=== PATIENT | female | born 1950 | race Two or more races ===

== ENCOUNTER 2017-08-06 21:38 | Inpatient (IN) | payer BC, MEDICARE ==
[~2017-08-06] VITALS: Ht 157.5 cm; Wt 53.0 kg
[2017-08-06] MEDS ORDERED: SODIUM CHLORIDE FLUSH 10ML SYR IVF ONE (22:30)
[2017-08-06 22:34] LABS: BASOPHILS # (AUTO) 0.01 x10^3/uL (0-0.1); BASOPHILS % (AUTO) 0 % (0-1); EOSINOPHILS % (AUTO) 1 % (1-7); LYMPHOCYTES # (AUTO) 1.05 x10^3/uL (1-3.4); LYMPHOCYTES % (AUTO) 15 % (22-44); MD NO; MEAN CORPUSCULAR HEMOGLOBIN 31.7 pg (27.0-34.8); MEAN CORPUSCULAR HGB CONC 34.1 g/dL (32.4-35.8); MEAN CORPUSCULAR VOLUME 92.8 fL (80-100); MEAN PLATELET VOLUME 7.8 fL (7.4-10.4); MONOCYTES # (AUTO) 0.48 x10^3/uL (0.2-0.8); MONOCYTES % (AUTO) 7 % (2-9); NEUTROPHILS # (AUTO) 5.52 x10^3/uL (1.8-6.8); NEUTROPHILS % (AUTO) 77 % (42-75); PLATELET COUNT 223 x10^3/uL (130-400); RED BLOOD COUNT 4.31 x10^6/uL (3.82-5.3); RED CELL DISTRIBUTION WIDTH 13.8 % (9.6-15.2)
[2017-08-06] MEDS ORDERED: ATORVASTATIN (22:44)
[2017-08-06] MEDS ORDERED: CITALOPRAM (22:44)
[2017-08-06 22:45] LABS: ALANINE AMINOTRANSFERASE 23 U/L (12-78); ALBUMIN 3.2 g/dL (3.4-5.0); ANION GAP 6 mmol/L (5-15); CALCIUM 7.9 mg/dL (8.5-10.1); CHLORIDE 110 mmol/L (98-107); CREATININE 0.78 mg/dL (0.55-1.02)
[2017-08-06 22:49] LABS: ALKALINE PHOSPHATASE 80 U/L (45-117); BILIRUBIN,TOTAL 0.4 mg/dL (0.2-1.0); TOTAL PROTEIN 6.4 g/dL (6.4-8.2); TROPONIN I < 0.015 ng/mL (0.000-0.045)
[2017-08-06] MEDS ORDERED: ACETAMINOPHEN 325 MG TABLET PO PRN (23:30)
[2017-08-06] MEDS ORDERED: FAMOTIDINE 20 MG/2 ML IVPush SCH (23:30)
[2017-08-06] MEDS ORDERED: METOCLOPRAMIDE 5 MG/ML, 2ML IVPush PRN (23:30)
[2017-08-06 23:57] VITALS: BP 111/66
[2017-08-07] MEDS: SODIUM CHLORIDE 0.9% 1,000 ML IV SCH ×2 (01:11→07:49)
[2017-08-07 01:33] VITALS: BP 98/58
[2017-08-07] MEDS: RANITIDINE 50 MG in SODIUM CHLORIDE 0.9% 100 ML IV SCH ×2 (02:05→12:26)
[2017-08-07 07:14] VITALS: BP 103/62
[2017-08-07] MEDS ORDERED: ENOXAPARIN 40 MG/0.4 ML SQ SCH (12:00)
[2017-08-07] MEDS ORDERED: NICOTINE 21 MG/24 HR PATCH.TD24 TD SCH (12:00)
[2017-08-07 13:08] VITALS: BP 112/71
[2017-08-07] MEDS ORDERED: [UNRECOGNIZED DRUG - REMARK] MC SCH (15:30)
[2017-08-07] MEDS ORDERED: IBUPROFEN 200 MG TABLET PO PRN ×2 (15:30→16:43)
[2017-08-07 19:37] VITALS: BP 96/62
[2017-08-07] MEDS ORDERED: FAMOTIDINE 20 MG TABLET PO SCH (21:00)
[2017-08-07] MEDS: DIPHENHYDRAMINE 25 MG CAPSULE PO PRN ×2 (21:06→22:26)
[2017-08-08 01:05] VITALS: BP 98/57
[2017-08-08 08:00] VITALS: BP 134/74
[2017-08-08] MEDS ORDERED: POTASSIUM CHLORIDE 20 MEQ TAB.ER.PRT PO ONE (13:00)
== END 2017-08-08 14:15 | disposition home or self-care (01) | DRG 73 ==
LOC: ED 22:43 → EDIP 23:10 → 4WST 08-07 00:12 → DCLOUNGE 08-08 14:11
PROVIDERS: ADMIT Internal Medicine Pulmonary Disease; ATTEND Internal Medicine Pulmonary Disease
DX: G90.9 Disorder of the autonomic nervous system, unspecified (principal); J96.00 Acute respiratory failure, unspecified whether with hypoxia or hypercapnia; I95.9 Hypotension, unspecified; E44.1 Mild protein-calorie malnutrition; E83.51 Hypocalcemia; E86.1 Hypovolemia; E87.6 Hypokalemia; F17.210 Nicotine dependence, cigarettes, uncomplicated; J43.9 Emphysema, unspecified; F32.9 Major depressive disorder, single episode, unspecified; G44.209 Tension-type headache, unspecified, not intractable; R55 Syncope and collapse; R73.9 Hyperglycemia, unspecified; Z88.6 Allergy status to analgesic agent; Z80.3 Family history of malignant neoplasm of breast; Z82.3 Family history of stroke; Z83.3 Family history of diabetes mellitus; Z88.5 Allergy status to narcotic agent; Z90.49 Acquired absence of other specified parts of digestive tract; Z68.21 Body mass index [BMI] 21.0-21.9, adult
CPT/HCPCS: 36415; 71045; 80053; 83880; 84484; 85025; 93005; 93306; 99285; J1650; J2780; J7030; Q0163